=== PATIENT | male | born 1945 | race Caucasian/White ===

== ENCOUNTER 2016-07-05 07:57 | Outpatient (CLI) | payer MEDICARE, BC | END 2016-07-05 07:58 | disposition home or self-care (01) | DX: M10.9 Gout, unspecified (principal); E78.2 Mixed hyperlipidemia; C64.9 Malignant neoplasm of unspecified kidney, except renal pelvis ==

== ENCOUNTER 2017-04-16 10:52 | Day surgery (SDC) | payer MEDICARE, BC ==
[2017-04-16 11:34] LABS: BASOPHILS # (AUTO) 0.1 10^3/uL (0.0-0.1); BASOPHILS % (AUTO) 1.5 %; EOSINOPHILS # (AUTO) 0.2 10^3/uL (0.0-0.7); EOSINOPHILS % (AUTO) 3.3 %; HGB - HEMOGLOBIN 14.9 g/dL (14.0-18.0); LYMPHOCYTES # (AUTO) 1.5 10^3/uL (1.5-3.5); LYMPHOCYTES % (AUTO) 26.3 %; MEAN CORPUSCULAR HEMOGLOBIN 31.5 pg (27.0-31.0); MEAN CORPUSCULAR HGB CONC 34.4 g/dL (32.0-36.0); MEAN CORPUSCULAR VOLUME 91.4 fL (80.0-94.0); MEAN PLATELET VOLUME 6.9 fL (7.4-11.4); MONOCYTES # (AUTO) 0.6 10^3/uL (0.0-1.0); NEUTROPHILS # (AUTO) 3.3 10^3/uL (1.5-6.6); NEUTROPHILS % (AUTO) 57.9 %; PLT - PLATELET COUNT 185 10^3/uL (130-450); RED BLOOD COUNT 4.75 10^6/uL (4.70-6.10); RED CELL DISTRIBUTION WIDTH 13.1 % (12.0-15.0); WHITE BLOOD COUNT 5.7 x10^3/uL (4.8-10.8)
[2017-04-16 11:43] LABS: PT - PROTHROMBIN TIME 11.5 secs (9.9-12.6)
[2017-04-16 11:48] LABS: ALBUMIN 4.1 g/dL (3.2-5.5); ALBUMIN/GLOBULIN RATIO 1.3 (1.0-2.2); CALCIUM 9.3 mg/dL (8.5-10.3); CREATININE 1.3 mg/dL (0.6-1.2); TOTAL PROTEIN 7.3 g/dL (6.7-8.2)
--- NOTE | 2017-04-16 11:59 | ED Physician Documentation ---
PD HPI ABD PAIN - Stated complaint Stated Complaint: GROIN PX - Chief complaint Chief Complaint: Abd Pain - History obtained from History obtained from: Patient, EMS - History of Present Illness Timing - onset: How many days ago (4) Timing - details: Abrupt onset, Still present Quality: Aching, Throbbing Location: LLQ Worsened by: Eating Associated symptoms: Constipation. No: Fever, Vomiting, Hematochezia, Dysuria, Hematuria Recently seen: Clinic - Additional information Additional information: Patient is a 71 year old male with a history of hernia. Starting three days prior the patient had worsening pain and could not push back his hernia. Patient went to see his pmd, who recommended that the patient come to the emergency department for surgical evaluation. Review of Systems Constitutional: denies: Fever, Chills Eyes: reports: Reviewed and negative Ears: reports: Reviewed and negative Nose: reports: Reviewed and negative Throat: reports: Reviewed and negative Cardiac: denies: Chest pain / pressure, Palpitations Respiratory: denies: Dyspnea, Wheezing GI: reports: Abdominal Pain, Constipation : denies: Dysuria, Frequency Skin: denies: Rash, Lesions Musculoskeletal: denies: Neck pain, Back pain Immunocompromised: denies: Immunocompromised PD PAST MEDICAL HISTORY - Past Medical History Past Medical History: Yes Cardiovascular: Hypertension : Renal insuffiency Musculoskeletal: Other - Past Surgical History Past Surgical History: Yes General: Hiatal hernia repair - Present Medications Home Medications: Ambulatory Orders Medication Instructions Recorded Confirmed Ibuprofen [Motrin] 800 mg PO Q8H PRN #30 tablet 01/14/13 04/16/17 Lisinopril [Zestril] 10 mg PO DAILY 01/14/13 04/16/17 - Allergies Allergies/Adverse Reactions: Allergies Allergy/AdvReac Type Severity Reaction Status Date / Time No Known Drug Allergies Allergy Verified 04/16/17 11:02 - Social History Does the pt smoke?: No Smoking Status: Never smoker Does the pt drink ETOH?: No Does the pt have substance abuse?: No - Immunizations Immunizations are current?: Yes Immunizations: TDAP current <10years - POLST Patient has POLST: No PD ED PE NORMAL - Vitals Vital signs reviewed: Yes - General General: Alert and oriented X 3, No acute distress - HEENT HEENT: Atraumatic, PERRL - Neck Neck: Supple, no meningeal sign, No JVD - Respiratory Respiratory: No respiratory distress - Abdomen Abdomen: Soft - Derm Derm: Normal color, Warm and dry - Extremities Extremities: No deformity - Neuro Neuro: Alert and oriented X 3, No motor deficit, No sensory deficit, Normal speech - Psych Psych: Normal mood PD ED PE EXPANDED - Cardiac Cardiac: Yonny - Abdomen Abdomen: Other (hernia inguinal region) Results - Vitals Vitals: Vital Signs - 24 hr 04/16/17 04/16/17 04/16/17 10:58 14:44 14:50 Temperature 36.5 C Heart Rate 52 L Respiratory 18 Rate Blood Pressure 158/91 H Blood Pressure [Brachial artery] O2 Saturation 99 100 100 04/16/17 04/16/17 04/16/17 14:55 14:59 15:05 Temperature Heart Rate Respiratory Rate Blood Pressure Blood Pressure [Brachial artery] O2 Saturation 100 99 100 04/16/17 04/16/17 04/16/17 15:10 15:14 15:20 Temperature 36.8 C Heart Rate 58 L Respiratory 16 Rate Blood Pressure Blood Pressure 139/83 H [Brachial artery] O2 Saturation 100 100 99 Oxygen O2 Source Room air - EKG (time done) 1110 Rate: Rate (enter#) (48) Rhythm: Sinus bradycardia Poston: Normal Intervals: Normal GA QRS: Normal Ischemia: Normal ST segments Compare to prior EKG: Old EKG unavailable - Labs Labs: Laboratory Tests 04/16/17 04/16/17 04/16/17 11:20 11:20 11:20 WBC 5.7 RBC 4.75 Hgb 14.9 Hct 43.4 MCV 91.4 MCH 31.5 H MCHC 34.4 RDW 13.1 Plt Count 185 MPV 6.9 L Neut # 3.3 Lymph # 1.5 Charlotte # 0.6 Eos # 0.2 Baso # 0.1 Absolute Nucleated RBC 0.00 Nucleated RBC % 0.0 PT 11.5 INR 1.0 APTT 25.3 Sodium 137 Potassium 4.0 Chloride 103 Carbon Dioxide 26 Anion Gap 8.0 BUN 18 Creatinine 1.3 H Estimated GFR (MDRD) 55 L Glucose 96 Calcium 9.3 Total Bilirubin 1.0 AST 20 ALT 22 Alkaline Phosphatase 47 Total Protein 7.3 Albumin 4.1 Globulin 3.2 Albumin/Globulin Ratio 1.3 Lipase 23 PD MEDICAL DECISION MAKING - ED course Complexity details: reviewed old records, reviewed results, considered differential, d/w patient, d/w c consultant ED course: Patient was seen by the professional nursing assistant surgeon who wanted to take the patient to the OR. pre op labs were performed as well as ekg. patient went ot the or in stable condition. Departure - Departure Disposition: ED Transfer to [facility] Discharge Date/Time: 04/16/17 13:10
[2017-04-16] MEDS ORDERED: LACTATED RINGERS 1,000 ML IV ONE ×2 (13:19→14:04)
[2017-04-16] MEDS ORDERED: BUPIVACAINE 0.5% PF 30 ML VIAL INFIL ONE ×2 (13:48)
[2017-04-16] MEDS ORDERED: SUCCINYLCHOLINE 200 MG/10 ML VIAL IVP ONE (14:20)
[2017-04-16] MEDS ORDERED: ROCURONIUM 50 MG/5 ML VIAL IVP ONE (14:20)
[2017-04-16] MEDS ORDERED: GLYCOPYRROLATE 1 MG/5 ML VIAL IVP ONE (14:20)
[2017-04-16] MEDS ORDERED: ePHEDrine 50 MG/ML AMP IVP ONE (14:20)
[2017-04-16] MEDS ORDERED: MIDAZOLAM 2 MG/2 ML VIAL IVP ONE (14:20)
[2017-04-16] MEDS ORDERED: LIDOCAINE-MPF 2% 5 ML VIAL IM ONE (14:20)
[2017-04-16] MEDS ORDERED: PROPOFOL 200 MG/20 ML VIAL IVP ONE (14:20)
[2017-04-16] MEDS ORDERED: NEOSTIGMINE 1 MG/1 ML 10 ML MDV IVP ONE (14:20)
[2017-04-16] MEDS ORDERED: DEXAMETHASONE 4 MG/ML VIAL IVP ONE (14:20)
[2017-04-16] MEDS ORDERED: ONDANSETRON 4 MG/2 ML VIAL IVP ONE (14:20)
[2017-04-16] MEDS ORDERED: KETOROLAC 30 MG/ML VIAL IVP ONE (14:20)
--- NOTE | 2017-04-16 14:52 | OPERATIVE REPORT ---
Operative Report - General Procedure Date: 04/16/17 Planned Procedure: Recurrent incarcerated LEFT inguinal herniorrhaphy with mesh Pre-Op Diagnosis: Recurrent incarcerated LEFT inguinal hernia Procedure Performed: Recurrent incarcerated direct LEFT inguinal herniorrhaphy with mesh (Bard Mesh Perfix Plug, Ref#[id number], Lot#[id number], use by 2021-09-16) Post Op Diagnosis: Recurrent incarcerated direct LEFT inguinal hernia - Procedure Note Primary Surgeon: Quinn Tidwell MD Anesthesia Provider: Don Marshall Anesthesia Technique: General ET tube, Local (30 mL 1/2% marcaine) IV Fluids (mL): 1,500 Estimated Blood Loss (mL): 2 Complications: None. - Other Other Information/Narrative: OPERATIVE DESCRIPTION/REPORT: After verbal and written informed consent was obtained detailing the risks of infection, bleeding requiring transfusion with its risks, nerve injury, and , and after I met with the patient confirming the surgery and the site of the surgery and after initialing the site of the surgery with a surgical marker , the patient was brought to the operative suite and placed supine on the operating table. Great care was taken to avoid pressure points to prevent pressure necrosis or nerve injury. Monitoring devices were applied along with TEDs and pneumatic compressive stockings (to prevent DVT). The patient received preoperative antibiotics for surgical prophylaxis. Garret Marshall sedated and anethetized the patient for the entire procedure. The patient was prepped and draped in the usual sterile manner. With the patient draped my initials were clearly visible. A "time in" then confirmed that the patient was identified with 3 identifiers (name, birthdate and medical record number), the history and physical was in the chart, the signed consent confirming the procedure was in the chart, the patient was in the correct position, the aforementioned prophylactic measures were in place or given, we had the correct personnel and equipment to complete the procedure and that anesthesia, surgery and nursing were given an opportunity to express any concerns. With the agreement of everyone in the room, we proceeded with the operation. After the inguinal area was injected with % marcaine, anesthetizing the area, a standard inguinal incision was made tracing the previous incision and taking it medially about 1 inch and dissection was carried down to the external oblique aponeurosis using a combination of Metzenbaum scissors and Bovie electrocautery. The external oblique aponeurosis was cleared of overlying adherent tissue, and the external ring was delineated. The external oblique was the incised with a scalpel and this incision was carried out to the external ring using Metzenbaum scissors. Having exposed the inguinal canal, the cord structures were from the canal using blunt dissection, and a Priya drain was placed around the cord structures at the level of the pubic tubercle. This Broadwater drain was then used to retract the cord structures as needed. Adherent cremasteric muscle was dissected free from the cord using Bovie electrocautery. The hernia was large and incarcerated. I could not manually reduce this back through the small opening without opening the hernia sac. Once the hernia sac was opened it was clear that there was colon within the hernia sac but not neither the colon, nor its mesentery or omentum was compromised. In short there was no necrosis. There was some clear serous fluid that was drained once the hernia sac was opened. In order to reduce the hernia I had to dilate the opening first with a King clamp and then with my pinky and then index finger. This allowed me to reduce the hernia contents back into the abdomen. There was a slight sliding component to this and the adhesions to the sac were taken using Bovie electrocautery. In this manner I was able to do reduce the hernia contents completely. The hernia sac was excised using Bovie electrocautery. I did not send the hernia sac to pathology. I inserted a large Bard Perfix plug ( see above for numbers) into the hernia defect. The plug was secured to the edge of the hernia defect using interrupted 2-0 PDS sutures. Of note the hernia had occurred between the previous mesh and the shelving edge of Poupart' s ligament in between the sutures. I then sutured the mesh over to the shelving edge of Poupart ligament incorporating the mesh plug. In this manner the mesh plug was secured to the hernia edges and the hernia edges were then closed over it. I opted not to use the PerFix enlay patch as the remainder of the repair appeared intact and strong. An indirect sac was not found. The Priya drain was removed. The wound was then irrigated using sterile saline, and hemostasis was obtained using Bovie electrocautery. The incision in the external oblique was approximated using a 2 -0 Vicryl in a running fashion, thus reforming the external ring. Anthony's fascia was loosely approximated using a 2-0 Vicryl suture. The skin incision was approximated with 4-0 Monocryl in a subcuticular fashion. The skin was prepped with benzoin and steristrips were applied. At this point a time out was performed that confirmed that all the counts were correct, the procedure that was performed, the blood loss, the IV fluids administered, and the patients condition. A dressing was then applied. Gentle downward traction ensured that the testes were well seated in the scrotum. Having tolerated the procedure well , the patient was taken to recovery room in good and stable condition.
[2017-04-16] MEDS ORDERED: ACETAMINOPHEN 1,000 MG/100 ML 100 ML IV ONE (14:55)
--- NOTE | 2017-04-16 15:14 | CONSULTATION NOTE ---
Referring Provider Name of Referring Provider:: Dr. Casper Matos Consult Date: 04/16/17 Chief Complaint - Chief Complaint Chief Complaint: Recurrent incarcerated LEFT inguinal hernia History of Present Illness - Admitted From Admitted From:: Emergency Department - History Obtained From Records Reviewed: Yes History obtained from: Patient and Dr. Matos Exam Limitations: None. - History of Present Illness HPI Comment/Other: After Dr. Matos called me today to inform me about Mr. Austin's incarcerated left recurrent inguinal hernia the patient was instructed to go to the emergency department where he could be evaluated. Sure enough, on examination he had an unreducible recurrent left inguinal hernia which had been causing him pain for several days. It was first noted on a drive back from [place]. He had not had a bowel movement in several days and was concerned about bowel strangulation. Of note, he had his hernia repaired approximately 20 years ago and he believes mesh was used in its repair. He denies nausea or vomiting. He has no complaints on his right-hand side. 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 History - Past Medical History Cardiovascular: reports: Hypertension : reports: Renal insuffiency Musculoskeletal: reports: Other - Past Surgical History General: reports: Hiatal hernia repair - POLST Patient has POLST: No Meds/Allgy - Home Medications Home Medications: Ambulatory Orders Medication Instructions Recorded Confirmed Ibuprofen [Motrin] 800 mg PO Q8H PRN #30 tablet 01/14/13 04/16/17 Lisinopril [Zestril] 10 mg PO DAILY 01/14/13 04/16/17 - Allergies Allergies/Adverse Reactions: Allergies Allergy/AdvReac Type Severity Reaction Status Date / Time No Known Drug Allergies Allergy Verified 04/16/17 11:02 Review of Systems - Constitutional Constitutional: denies: Fatigue, Fever, Chills, Malaise, Weakness, Poor appetite , Diaphoresis, Night sweats - Cardiovascular Cariovascular: denies: Irregular heart rate, Palpitations, Chest pain - Respiratory Respiratory: denies: Cough, Sputum production, Wheezing, Hemoptysis - Gastrointestinal Gastrointestinal: denies: Abdominal pain - Neurological Neurological: denies: General weakness, Focal weakness Exam - Vital Signs Reviewed Vital Signs: Yes Vital Signs: Vital Signs x48h Temp Pulse Resp BP Pulse Ox 04/16/17 15:10 100 04/16/17 15:05 100 04/16/17 14:59 99 04/16/17 14:55 100 04/16/17 14:50 100 04/16/17 14:44 100 04/16/17 10:58 36.5 C 52 L 18 158/91 H 99 - Physical Exam General Appearance: positive: No acute distress Eyes Bilateral: positive: No lid inflammation, Conjunctivae nml, No scleral icterus Neck: positive: Trachea midline Respiratory: positive: Chest non-tender, No respiratory distress, Breath sounds nml Cardiovascular: positive: Regular rate & rhythm, No murmur, No gallop, Other ( Incarcerated LEFT inguinal hernia) Peripheral Pulses: positive: 2+ Abdomen: positive: Non-tender, No distention Skin: positive: Color nml Extremities: positive: Non-tender, Full ROM, Nml appearance Neurologic/Psychiatric: positive: Oriented x3 Conclusion/Plan - Diagnosis Diagnosis: Recurrent incarcerated LEFT inguinal hernia - Plan Plan: Recurrent incarcerated left herniorrhaphy likely with or without mesh. The indications, procedure, alternatives including not repairing the hernia, and risks including but not limited to infection, bleeding, nerve injury, and were fully explained to the patient and all questions were fully answered. I explained that due to the recurrent and incarcerated nature of this hernia I would not be performing it laparoscopically. I explained that following the surgery I did not want him lifting anything over 15 pounds for 6 weeks to allow the area to heal optimally and decrease the likelihood that the hernia would recur. Verbal and written consent was obtained. The patient in preparation for his surgery will be nothing by mouth and receive 2 g of Ancef preoperatively for prophylaxis against surgical infection. I also asked the patient to let me know if there is any way we can make his stay at [facility] more comfortable and he stated that he would let me know. 30 minutes of [id number] time was spent with the patient with over 80% spent in discussion and coordination of his care - Lab Results Lab results reviewed: Yes Fish Bones: 04/16/17 11:20 04/16/17 11:20
[2017-04-16 16:28] VITALS: BP 114/97
== END 2017-04-16 11:51 | disposition home or self-care (01) ==
LOC: ED 10:52 → SDS 11:50
PROVIDERS: ATTEND Surgery
PROC: 0YU60JZ Supplement Left Inguinal Region with Synthetic Substitute, Open Approach (ICD-10-PCS; principal; 2017-04-16 12:15)
DX: K40.31 Unilateral inguinal hernia, with obstruction, without gangrene, recurrent (principal); I10 Essential (primary) hypertension; Z79.899 Other long term (current) drug therapy
CPT/HCPCS: 36415; 49521; 80053; 83690; 85025; 85610; 85730; 93005; 99283; C1781; J0131; J7120

== ENCOUNTER 2017-08-01 08:00 | Outpatient (CLI) | payer MEDICARE, BC ==
[2017-08-01 13:56] LABS: BASOPHILS # (AUTO) 0.1 10^3/uL (0.0-0.1); BASOPHILS % (AUTO) 1.4 %; EOSINOPHILS # (AUTO) 0.1 10^3/uL (0.0-0.7); EOSINOPHILS % (AUTO) 3.1 %; HGB - HEMOGLOBIN 15.1 g/dL (14.0-18.0); LYMPHOCYTES # (AUTO) 1.3 10^3/uL (1.5-3.5); LYMPHOCYTES % (AUTO) 28.3 %; MEAN CORPUSCULAR HEMOGLOBIN 31.9 pg (27.0-31.0); MEAN CORPUSCULAR HGB CONC 34.5 g/dL (32.0-36.0); MEAN CORPUSCULAR VOLUME 92.5 fL (80.0-94.0); MEAN PLATELET VOLUME 7.7 fL (7.4-11.4); MONOCYTES # (AUTO) 0.5 10^3/uL (0.0-1.0); MONOCYTES % (AUTO) 10.7 %; NEUTROPHILS # (AUTO) 2.7 10^3/uL (1.5-6.6); NEUTROPHILS % (AUTO) 56.5 %; PLT - PLATELET COUNT 198 10^3/uL (130-450); RED BLOOD COUNT 4.72 10^6/uL (4.70-6.10); WHITE BLOOD COUNT 4.7 x10^3/uL (4.8-10.8)
[2017-08-01 14:10] LABS: ALBUMIN 4.3 g/dL (3.2-5.5); ALBUMIN/GLOBULIN RATIO 1.6 (1.0-2.2); ALKALINE PHOSPHATASE 43 IU/L (42-121); ALT ALANINE AMINOTRANSFERASE 25 IU/L (10-60); AST ASPARTATE AMINOTRANSFERASE 23 IU/L (10-42); BUN - BLOOD UREA NITROGEN 19 mg/dL (6-20); CALCIUM 8.7 mg/dL (8.5-10.3); CARBON DIOXIDE - CO2 28 mmol/L (21-32); CHLORIDE 104 mmol/L (101-111); CHOLESTEROL 155 mg/dL; CREATININE 1.1 mg/dL (0.6-1.2); GFR - MDRD 66 (>89); GLUCOSE 102 mg/dL (70-100); HDL CHOLESTEROL 51 mg/dL; LDL CHOLESTEROL,CALCULATED 87 mg/dL; LDL/HDL RATIO 1.7 (<3.6); SODIUM 137 mmol/L (135-145); VLDL CHOLESTEROL 17 mg/dL
[2017-08-01 14:17] LABS: PSA FREE 0.74 ng/mL (0.16-2.81)
[2017-08-01 14:18] LABS: PSA TOTAL 2.38 ng/mL (0.000-2.000)
[2017-08-01 15:43] LABS: HB2 TOTAL 16.3 g/dL; HEMOGLOBIN A1C 0.64 g/dL; HEMOGLOBIN A1C % 5.7 % (4.6-6.2)
== END 2017-08-01 08:01 | disposition home or self-care (01) ==
LOC: LAB.R 08:00
PROVIDERS: ATTEND Internal Medicine
DX: Z12.5 Encounter for screening for malignant neoplasm of prostate (principal); C64.9 Malignant neoplasm of unspecified kidney, except renal pelvis; N18.9 Chronic kidney disease, unspecified; R73.01 Impaired fasting glucose; E78.5 Hyperlipidemia, unspecified; I12.9 Hypertensive chronic kidney disease with stage 1 through stage 4 chronic kidney disease, or unspecified chronic kidney disease
CPT/HCPCS: 80053; 80061; 83036; 83721; 84154; 85025

== ENCOUNTER 2018-10-24 09:55 | Outpatient (CLI) | payer MEDICARE, OTHER ==
[2018-10-24 10:37] LABS: BASOPHILS # (AUTO) 0.1 10^3/uL (0.0-0.1); BASOPHILS % (AUTO) 1.2 %; EOSINOPHILS # (AUTO) 0.2 10^3/uL (0.0-0.7); EOSINOPHILS % (AUTO) 2.7 %; HGB - HEMOGLOBIN 14.5 g/dL (14.0-18.0); LYMPHOCYTES # (AUTO) 1.3 10^3/uL (1.5-3.5); LYMPHOCYTES % (AUTO) 22.4 %; MEAN CORPUSCULAR HEMOGLOBIN 32.7 pg (27.0-31.0); MEAN CORPUSCULAR HGB CONC 34.1 g/dL (32.0-36.0); MEAN CORPUSCULAR VOLUME 95.9 fL (80.0-94.0); MONOCYTES # (AUTO) 0.6 10^3/uL (0.0-1.0); NEUTROPHILS # (AUTO) 3.7 10^3/uL (1.5-6.6); NEUTROPHILS % (AUTO) 62.5 %; PLT - PLATELET COUNT 172 10^3/uL (130-450); RED BLOOD COUNT 4.43 10^6/uL (4.70-6.10); RED CELL DISTRIBUTION WIDTH 12.1 % (12.0-15.0); WHITE BLOOD COUNT 5.8 x10^3/uL (4.8-10.8)
[2018-10-24 10:54] LABS: ALBUMIN 4.1 g/dL (3.2-5.5); ALBUMIN/GLOBULIN RATIO 1.5 (1.0-2.2); ALKALINE PHOSPHATASE 45 IU/L (42-121); ALT ALANINE AMINOTRANSFERASE 27 IU/L (10-60); AST ASPARTATE AMINOTRANSFERASE 23 IU/L (10-42); BUN - BLOOD UREA NITROGEN 19 mg/dL (6-20); CARBON DIOXIDE - CO2 26 mmol/L (21-32); CHLORIDE 106 mmol/L (101-111); CHOL/HDL RATIO 2.7 (<5.0); CHOLESTEROL 138 mg/dL; CREATININE 1.2 mg/dL (0.6-1.2); GFR - MDRD 60 (>89); GLUCOSE 117 mg/dL (70-100); HDL CHOLESTEROL 51 mg/dL; LDL CHOLESTEROL,CALCULATED 75 mg/dL; LDL/HDL RATIO 1.5 (<3.6); SODIUM 141 mmol/L (135-145); TOTAL PROTEIN 6.9 g/dL (6.7-8.2); URIC ACID 6.9 mg/dL (2.6-7.2); VLDL CHOLESTEROL 12 mg/dL
[2018-10-24 11:19] LABS: PSA FREE 0.66 ng/mL (0.16-2.81)
[2018-10-24 11:20] LABS: PSA TOTAL 2.28 ng/mL (0.000-2.000)
== END 2018-10-24 09:56 | disposition home or self-care (01) ==
LOC: LAB 09:55
PROVIDERS: ATTEND Nurse Practitioner
DX: M10.9 Gout, unspecified (principal); I12.9 Hypertensive chronic kidney disease with stage 1 through stage 4 chronic kidney disease, or unspecified chronic kidney disease; N18.9 Chronic kidney disease, unspecified; E78.5 Hyperlipidemia, unspecified; R73.01 Impaired fasting glucose; R97.20 Elevated prostate specific antigen [PSA]
CPT/HCPCS: 36415; 80053; 80061; 83721; 84153; 84154; 84443; 84550; 85025

== ENCOUNTER 2019-03-17 10:19 | Outpatient (CLI) | payer MEDICARE, OTHER ==
[2019-03-17 11:17] LABS: CALCIUM 8.9 mg/dL (8.5-10.3); CREATININE 1.3 mg/dL (0.6-1.2); URIC ACID 7.1 mg/dL (2.6-7.2)
== END 2019-03-17 10:20 | disposition home or self-care (01) ==
LOC: LAB 10:19
PROVIDERS: ATTEND Nurse Practitioner
DX: M10.9 Gout, unspecified (principal)
CPT/HCPCS: 36415; 80048; 84550

== ENCOUNTER 2019-06-04 12:37 | Outpatient (CLI) | payer MEDICARE, OTHER ==
[2019-06-04 15:57] LABS: CREATININE 1.3 mg/dL (0.6-1.2); URIC ACID 4.3 mg/dL (2.6-7.2)
== END 2019-06-04 12:38 | disposition home or self-care (01) ==
LOC: LAB 12:37
PROVIDERS: ATTEND Family Medicine
DX: M10.9 Gout, unspecified (principal); N18.9 Chronic kidney disease, unspecified; N40.0 Benign prostatic hyperplasia without lower urinary tract symptoms
CPT/HCPCS: 36415; 80048; 84550

== ENCOUNTER 2019-09-02 10:04 | Outpatient (CLI) | payer MEDICARE, OTHER ==
--- NOTE | 2019-09-02 15:08 | XRAY Report ---
Reason: SCIATICA Procedure Date: 09/02/2019 Accession Number: [id number] / [id number] Procedure: XR - Lumbar Spine 2 View CPT Code: Final Report FULL RESULT: EXAM: LUMBOSACRAL SPINE RADIOGRAPHY EXAM DATE: 09/02/2019 10:18 AM. CLINICAL HISTORY: SCIATICA. COMPARISONS: None. TECHNIQUE: 2 views. FINDINGS: Alignment: Normal. No spondylolisthesis or scoliosis. Bones: Five [id number] lumbar vertebral bodies are present. No fractures or bone lesions. Disks and facets: Moderate multilevel osteoarthritic changes present. Sacroiliac Joints: Unremarkable. Soft Tissues: Normal. The visualized bowel gas pattern is normal. IMPRESSION: Moderate multilevel osteoarthritic changes without acute fracture. RADIA
== END 2019-09-02 10:05 | disposition home or self-care (01) ==
LOC: DI 10:04
PROVIDERS: ATTEND Nurse Practitioner
DX: M47.816 Spondylosis without myelopathy or radiculopathy, lumbar region (principal)
CPT/HCPCS: 72100

== ENCOUNTER 2019-12-01 08:32 | Outpatient (CLI) | payer MEDICARE, OTHER ==
[2019-12-01 08:54] LABS: BASOPHILS # (AUTO) 0.1 10^3/uL (0.0-0.1); BASOPHILS % (AUTO) 1.5 %; EOSINOPHILS # (AUTO) 0.2 10^3/uL (0.0-0.7); EOSINOPHILS % (AUTO) 4.5 %; HGB - HEMOGLOBIN 14.9 g/dL (14.0-18.0); LYMPHOCYTES # (AUTO) 1.3 10^3/uL (1.5-3.5); LYMPHOCYTES % (AUTO) 28.2 %; MEAN CORPUSCULAR HEMOGLOBIN 32.9 pg (27.0-31.0); MEAN CORPUSCULAR HGB CONC 34.7 g/dL (32.0-36.0); MEAN CORPUSCULAR VOLUME 94.9 fL (80.0-94.0); MEAN PLATELET VOLUME 8.9 fL (7.4-11.4); MONOCYTES # (AUTO) 0.6 10^3/uL (0.0-1.0); NEUTROPHILS # (AUTO) 2.5 10^3/uL (1.5-6.6); NEUTROPHILS % (AUTO) 53.4 %; PLT - PLATELET COUNT 178 10^3/uL (130-450); RED BLOOD COUNT 4.53 10^6/uL (4.70-6.10); RED CELL DISTRIBUTION WIDTH 12.3 % (12.0-15.0); WHITE BLOOD COUNT 4.7 x10^3/uL (4.8-10.8)
[2019-12-01 09:14] LABS: ALBUMIN 4.2 g/dL (3.2-5.5); ALBUMIN/GLOBULIN RATIO 1.6 (1.0-2.2); ALKALINE PHOSPHATASE 41 IU/L (42-121); ALT ALANINE AMINOTRANSFERASE 24 IU/L (10-60); AST ASPARTATE AMINOTRANSFERASE 23 IU/L (10-42); BILIRUBIN,TOTAL 1.1 mg/dL (0.2-1.0); BUN - BLOOD UREA NITROGEN 20 mg/dL (6-20); CALCIUM 8.8 mg/dL (8.5-10.3); CARBON DIOXIDE - CO2 27 mmol/L (21-32); CHLORIDE 105 mmol/L (101-111); CHOL/HDL RATIO 3.6 (<5.0); CHOLESTEROL 157 mg/dL; CREATININE 1.3 mg/dL (0.6-1.2); GLUCOSE 106 mg/dL (70-100); HDL CHOLESTEROL 44 mg/dL; LDL CHOLESTEROL,CALCULATED 90 mg/dL; SODIUM 137 mmol/L (135-145); TOTAL PROTEIN 6.9 g/dL (6.7-8.2); VLDL CHOLESTEROL 23 mg/dL
[2019-12-01 10:06] LABS: PSA FREE 0.849 ng/mL (0.16-2.81)
[2019-12-01 10:07] LABS: PSA TOTAL 2.445 ng/mL (0.000-2.000)
[2019-12-01 10:49] LABS: HB2 TOTAL 15.3 g/dL; HEMOGLOBIN A1C 0.62 g/dL; HEMOGLOBIN A1C % 5.9 % (4.6-6.2)
== END 2019-12-01 08:33 | disposition home or self-care (01) ==
LOC: LAB 08:32
PROVIDERS: ATTEND Nurse Practitioner
DX: I12.9 Hypertensive chronic kidney disease with stage 1 through stage 4 chronic kidney disease, or unspecified chronic kidney disease (principal); N18.9 Chronic kidney disease, unspecified; E78.5 Hyperlipidemia, unspecified; R73.01 Impaired fasting glucose; R97.20 Elevated prostate specific antigen [PSA]
CPT/HCPCS: 36415; 80053; 80061; 83036; 83721; 84153; 84154; 84443; 85025

== ENCOUNTER 2020-10-07 08:03 | Outpatient (CLI) | payer MEDICARE ==
[2020-10-07 08:18] LABS: BASOPHILS # (AUTO) 0.1 10^3/uL (0.0-0.1); BASOPHILS % (AUTO) 2.4 %; EOSINOPHILS # (AUTO) 0.2 10^3/uL (0.0-0.7); EOSINOPHILS % (AUTO) 3.8 %; HCT - HEMATOCRIT 44.4 % (42.0-52.0); HGB - HEMOGLOBIN 14.7 g/dL (14.0-18.0); LYMPHOCYTES # (AUTO) 1.2 10^3/uL (1.5-3.5); LYMPHOCYTES % (AUTO) 28.9 %; MEAN CORPUSCULAR HEMOGLOBIN 31.9 pg (27.0-31.0); MEAN CORPUSCULAR HGB CONC 33.1 g/dL (32.0-36.0); MEAN CORPUSCULAR VOLUME 96.3 fL (80.0-94.0); MEAN PLATELET VOLUME 8.7 fL (7.4-11.4); MONOCYTES # (AUTO) 0.5 10^3/uL (0.0-1.0); MONOCYTES % (AUTO) 10.9 %; NEUTROPHILS # (AUTO) 2.3 10^3/uL (1.5-6.6); NEUTROPHILS % (AUTO) 53.8 %; PLT - PLATELET COUNT 181 10^3/uL (130-450); RED BLOOD COUNT 4.61 10^6/uL (4.70-6.10); RED CELL DISTRIBUTION WIDTH 12.2 % (12.0-15.0); WHITE BLOOD COUNT 4.2 x10^3/uL (4.8-10.8)
[2020-10-07 08:38] LABS: ALBUMIN 4.2 g/dL (3.2-5.5); ALBUMIN/GLOBULIN RATIO 1.6 (1.0-2.2); ALKALINE PHOSPHATASE 49 IU/L (42-121); ALT ALANINE AMINOTRANSFERASE 27 IU/L (10-60); AST ASPARTATE AMINOTRANSFERASE 22 IU/L (10-42); BILIRUBIN,TOTAL 1.1 mg/dL (0.2-1.0); BUN - BLOOD UREA NITROGEN 22 mg/dL (6-20); CALCIUM 9.1 mg/dL (8.5-10.3); CARBON DIOXIDE - CO2 27 mmol/L (21-32); CHLORIDE 103 mmol/L (101-111); CHOL/HDL RATIO 3.2 (<5.0); CHOLESTEROL 183 mg/dL; CREATININE 1.3 mg/dL (0.6-1.2); GFR - MDRD 54 (>89); GLUCOSE 123 mg/dL (70-100); HDL CHOLESTEROL 58 mg/dL; LDL CHOLESTEROL,CALCULATED 106 mg/dL; LDL/HDL RATIO 1.8 (<3.6); POTASSIUM 4.2 mmol/L (3.5-5.0); SODIUM 139 mmol/L (135-145); TOTAL PROTEIN 6.9 g/dL (6.7-8.2); TRIGLYCERIDES 94 mg/dL; URIC ACID 4.8 mg/dL (2.6-7.2); VLDL CHOLESTEROL 19 mg/dL
== END 2020-10-07 08:04 | disposition home or self-care (01) ==
LOC: LAB 08:03
PROVIDERS: ATTEND Physician Assistant
DX: I10 Essential (primary) hypertension (principal); M1A.9XX0 Chronic gout, unspecified, without tophus (tophi); E78.2 Mixed hyperlipidemia
CPT/HCPCS: 36415; 80053; 80061; 83721; 84550; 85025